=== PATIENT | male | born 1950 | race Caucasian/White ===

== ENCOUNTER 2018-01-19 12:30 | Outpatient (RCR) | payer MEDICARE, BC ==
[~2018-01-19 12:30] MED LIST: ADAL40PE4 SQ; AMOX-559 PO; IPRA15SP7 NS; LEVO150T72 PO; PANT40TA65 PO; TAMS0.4C25 PO
== END 2018-01-19 15:02 | disposition home or self-care (01) ==
LOC: AUD 12:30
PROVIDERS: ATTEND Otolaryngology
DX: H69.80 Other specified disorders of Eustachian tube, unspecified ear (principal)
CPT/HCPCS: 92557; 92570